=== PATIENT | female | born 1990 | race Caucasian/White ===

== ENCOUNTER 2017-12-17 05:37 | Emergency (ER) | payer SELFPAY ==
--- OUTSIDE RECORDS SUMMARY | 2017-12-17 05:39 | XMS REPORT ---
:1990 [facility] [address] [place] [address] [address] Care Team Providers Name Role Phone LASHONDA JENKINS Unavailable Unavailable Problems This patient has no known problems. Allergies, Adverse Reactions, Alerts This patient has no known allergies or adverse reactions. Medications This patient has no known medications. Encounters Start End Encounter Admission Attending Care Care Encounter Date/Time Date/Time Type Type Clinicians Facility Department ID 2017-04-20 2017-04-20 Emergency [facility] [id number] 03:51:00 05:45:00 LASHONDA Results Test Description Test Time Test Comments Text Results Atomic Results Result Comments XR RIBS LEFT UNIL 3VWS 2017-02-22 19:29:12 LEFT RIB SERIES WITH PA CHESTLocation: W/PA CHEST [id number] HISTORY: painTechnique: Views of the left ribs were obtained , with bone detail technique. An additional PA view of the chest was obtained. Findings: Bony mineralization is normal without osteolytic or osteoblasticlesions. There is an acute fracture through the lateral aspect of the leftsixth rib. There is a questionable R show greenstick type fracture of theseventh rib. The underlying lung is unremarkable. No evidence of pleuraleffusion or pneumothorax. IMPRESSION: Acute fracture through the left sixth rib. Questionable partial fracture of theleft seventh rib.
--- NOTE | 2017-12-17 06:03 | EDPHYS ---
Physician Documentation [facility] Name: Li Mendieta Age: 27 yrs Sex: Female : 1990 Arrival Date: 12/17/2017 Time: 05:42 Bed 8 Private MD: ED Physician Dustin Prabhakar HPI: 12/17 06:01 This 27 yrs old Female presents to ER via Ambulatory with complaints of Ear kb Pain. 06:01 The patient presents with pain, that is acute. The complaints affect the left ear. kb Onset: The symptoms/episode began/occurred 4 day(s) ago. Modifying factors: The symptoms are alleviated by nothing, the symptoms are aggravated by pulling on ears. Associated signs and symptoms: The patient has no apparent associated signs or symptoms. Severity of symptoms: At their worst the symptoms were moderate in the emergency department the symptoms are unchanged. The patient has not experienced similar symptoms in the past. The patient has not recently seen a physician. 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 - Social history:: Smoking status: Patient uses tobacco products, smokes one-half pack cigarettes per day. ROS: 06:00 Constitutional: Negative for fever, chills, and weight loss, Cardiovascular: Negative kb for chest pain, palpitations, and edema, Respiratory: Negative for shortness of breath, cough, wheezing, and pleuritic chest pain, Abdomen/GI: Negative for abdominal pain, nausea, vomiting, diarrhea, and constipation, MS/Extremity: Negative for injury and deformity, Skin: Negative for injury, rash, and discoloration, Neuro: Negative for headache, weakness, numbness, tingling, and seizure. 06:00 ENT: Positive for ear pain. Exam: 06:00 Constitutional: This is a well developed, well nourished patient who is awake, alert, kb and in no acute distress. Head/Face: Normocephalic, atraumatic. Chest/axilla: Normal chest wall appearance and motion. Nontender with no deformity. No lesions are appreciated. Cardiovascular: Regular rate and rhythm with a normal S1 and S2. No gallops, murmurs, or rubs. Normal PMI, no JVD. No pulse deficits. Respiratory: Lungs have equal breath sounds bilaterally, clear to auscultation and percussion. No rales, rhonchi or wheezes noted. No increased work of breathing, no retractions or nasal flaring. Abdomen/GI: Soft, non-tender, with normal bowel sounds. No distension or tympany. No guarding or rebound. No evidence of tenderness throughout. Skin: Warm, dry with normal turgor. Normal color with no rashes, no lesions, and no evidence of cellulitis. MS/ Extremity: Pulses equal, no cyanosis. Neurovascular intact. Full, normal range of motion. Neuro: Awake and alert, GCS 15, oriented to person, place, time, and situation. Cranial nerves II-XII grossly intact. Motor strength 5/5 in all extremities. Sensory grossly intact. Cerebellar exam normal. Normal gait. 06:00 ENT: External ear(s): are unremarkable, Ear canal(s): purulent discharge, that is minimal, in the left canal, swelling, that is moderate, of the left canal, TM's: bulging, on the left, erythema, that is moderate, on the left, Examination of the other ear shows no obvious abnormality. Vital Signs: 05:49 BP 111 / 82; Pulse 80; Resp 16; Temp 97.4; Pulse Ox 100% on R/A; Weight 58.97 kg; aa1 Height 5 ft. 3 in. (160.02 cm); Pain 9/10; 05:49 Body Mass Index 23.03 (58.97 kg, 160.02 cm) aa1 MDM: 05:54 Patient medically screened. kb 06:01 Data reviewed: vital signs, nurses notes. Data interpreted: Pulse oximetry: on room air kb is 100 %. Interpretation: normal. 06:02 Counseling: I had a detailed discussion with the patient and/or guardian regarding: the kb historical points, exam findings, and any diagnostic results supporting the discharge/admit diagnosis, the need for outpatient follow up, a family practitioner, to return to the emergency department if symptoms worsen or persist or if there are any questions or concerns that arise at home. Administered Medications: No medications were administered Disposition: 12/17/17 06:02 Discharged to Home. Impression: Unspecified otitis externa, left ear, Otitis media, unspecified, left ear. - Condition is Stable. - Discharge Instructions: Otitis Externa, [id number], Otitis Media, Adult, Capn-vi-[id number], Ear Drops, Adult, [id number]-[id number]. - Prescriptions for Cortisporin 3.5- 10,000-1 mg/mL-unit/mL-% Otic solution - instill 4 drop by OTIC route 4 times per day for 7 days; 1 bottle. Amoxicillin 875 mg Oral Tablet - take 1 tablet by ORAL route every 12 hours for 7 days; 14 tablet. - Medication Reconciliation Form, Thank You Letter, Antibiotic Education, Prescription Opioid Use form. - Follow up: Emergency Department; When: As needed; Reason: Worsening of condition. Follow up: Private Physician; When: 2 - 3 days; Reason: Recheck today's complaints, Continuance of care, Re-evaluation by your physician. Addendum: 12/19/2017 09:12 Co-signature as Attending Physician, Dustin Prabhakar MD I agree with the assessment and c glasgow plan of care. Signatures: Daja Aleman, ELECTRICAL SUBCONTRACTOR-C ELECTRICAL SUBCONTRACTOR-Sarita Samayoa, RN RN aa1 Dustin Prabhakar MD MD cha Lasagna, Tonya, RN RN tl1 Corrections: (The following items were deleted from the chart) 12/17 06:09 06:02 12/17/2017 06:02 Discharged to Home. Impression: Unspecified otitis externa, left tl1 ear; Otitis media, unspecified, left ear. Condition is Stable. Forms are Medication Reconciliation Form, Thank You Letter, Antibiotic Education, Prescription Opioid Use. Follow up: Emergency Department; When: As needed; Reason: Worsening of condition. Follow up: Private Physician; When: 2 - 3 days; Reason: Recheck today's complaints, Continuance of care, Re-evaluation by your physician. kb
--- NOTE | 2017-12-17 06:03 | ER ---
Nurse's Notes [facility] Name: Li Mendieta Age: 27 yrs Sex: Female : 1990 Arrival Date: 12/17/2017 Time: 05:42 Bed 8 Private MD: Diagnosis: Unspecified otitis externa, left ear;Otitis media, unspecified, left ear Presentation: 12/17 05:48 Presenting complaint: Patient states: L ear pain for past several days. Transition of aa1 care: patient was not received from another setting of care. Onset of symptoms was December 14, 2017. Initial Sepsis Screen: Does the patient meet any 2 criteria? No. Patient's initial sepsis screen is negative. Does the patient have a suspected source of infection? No. Patient's initial sepsis screen is negative. Care prior to arrival: None. 05:48 Method Of Arrival: Ambulatory aa1 05:48 Acuity: TA 5 aa1 BRICK YARD HAND: 05:49 LMP 11/29/2017 aa1 Historical: - Allergies: 05:49 No Known Allergies; aa1 - Home Meds: 05:49 None [Active]; aa1 - PMHx: 05:49 None; aa1 - PSHx: 05:49 None; aa1 - Immunization history:: Flu vaccine is up to date. - Social history:: Smoking status: Patient uses tobacco products, smokes one-half pack cigarettes per day. Screenin:52 Abuse screen: Denies threats or abuse. Denies injuries from another. Nutritional tl1 screening: No deficits noted. Tuberculosis screening: No symptoms or risk factors identified. Fall Risk None identified. Assessment: 05:50 General: Appears in no apparent distress. Behavior is calm, cooperative, appropriate tl1 for age. Pain: Complains of pain in left ear Pain currently is 9 out of 10 on a pain scale. Quality of pain is described as aching, sharp, shooting. Neuro: Level of Consciousness is awake, alert, obeys commands, Oriented to person, place, time, situation. Cardiovascular: Denies chest pain. Respiratory: Airway is patent Trachea midline Respiratory effort is even, unlabored, Breath sounds are clear bilaterally. GI: Abdomen is non-distended, Bowel sounds present X 4 quads. Abd is soft and non tender X 4 quads. : No deficits noted. No signs and/or symptoms were reported regarding the genitourinary system. EENT: Reports pain in left ear. Derm: No signs and/or symptoms reported regarding the dermatologic system. Musculoskeletal: No signs and/or symptoms reported regarding the musculoskeletal system. Vital Signs: 05:49 BP 111 / 82; Pulse 80; Resp 16; Temp 97.4; Pulse Ox 100% on R/A; Weight 58.97 kg; aa1 Height 5 ft. 3 in. (160.02 cm); Pain 9/10; 05:49 Body Mass Index 23.03 (58.97 kg, 160.02 cm) aa1 ED Course: 05:42 Patient arrived in ED. es 05:46 Rand Pike, RN is Primary Nurse. tl1 05:49 Triage completed. aa1 05:49 Arm band placed on right wrist. Patient placed in an exam room, on a stretcher. aa1 05:49 Patient has correct armband on for positive identification. Bed in low position. Call tl1 light in reach. Side rails up X 1. 05:52 No provider procedures requiring assistance completed. Patient did not have IV access tl1 during this emergency room visit. 05:53 Daja Aleman FNP-C is [facility]. kb 05:53 Dustin Prabhakar MD is Attending Physician. kb Administered Medications: No medications were administered Outcome: 06:02 Discharge ordered by . kb 06:08 Discharged to home ambulatory. tl1 06:08 Condition: good 06:08 Discharge instructions given to patient, Instructed on discharge instructions, follow up and referral plans. medication usage, Demonstrated understanding of instructions, follow-up care, medications. 06:09 Patient left the ED. tl1 Signatures: Daja Aleman FNP-C FNP-Sarita Samayoa RN RN aa1 Caroline Guillory Tonya, RN RN tl1
== END 2017-12-17 06:09 | disposition home or self-care (01) ==
LOC: ER 05:37
DX: H60.92 Unspecified otitis externa, left ear (principal); H66.92 Otitis media, unspecified, left ear; F17.210 Nicotine dependence, cigarettes, uncomplicated
CPT/HCPCS: 99281